=== PATIENT | female | born 1965 | race Caucasian/White ===

== ENCOUNTER 2024-08-20 09:04 | Outpatient (CLI) | payer OTHER | END 2024-08-20 23:59 | disposition home or self-care (01) | LOC: MRI02 09:04 | PROVIDERS: ATTEND Orthopaedic Surgery | DX: S83.232A Complex tear of medial meniscus, current injury, left knee, initial encounter (principal); M25.562 Pain in left knee; M25.462 Effusion, left knee; X58.XXXA Exposure to other specified factors, initial encounter; Y93.89 Activity, other specified; Y92.89 Other specified places as the place of occurrence of the external cause; Y99.8 Other external cause status | CPT/HCPCS: 73721 ==